=== PATIENT | female | born 1995 | race Two or more races ===

== ENCOUNTER 2021-06-07 12:54 | Emergency (ER) | payer MEDICAID, OTHER ==
[~2021-06-07] VITALS: Ht 165.1 cm; Wt 94.3 kg
[2021-06-07 14:36] VITALS: BP 119/74
== END 2021-06-07 15:16 | disposition home or self-care (01) ==
LOC: ER 12:54
DX: M62.838 Other muscle spasm (principal); M25.511 Pain in right shoulder; M25.512 Pain in left shoulder; V89.2XXA Person injured in unspecified motor-vehicle accident, traffic, initial encounter; Y93.89 Activity, other specified; Y92.89 Other specified places as the place of occurrence of the external cause; Y99.8 Other external cause status
CPT/HCPCS: 73030